=== PATIENT | male | born 1970 | race Caucasian/White ===

== ENCOUNTER 2019-05-23 03:04 | Emergency (ER) | payer BC ==
[~2019-05-23] VITALS: Ht 165.1 cm; Wt 108.0 kg
[2019-05-23 03:08] VITALS: Ht 165.1 cm; Wt 108.0 kg
[2019-05-23 04:15] VITALS: BP 135/79
== END 2019-05-23 03:18 | disposition home or self-care (01) ==
LOC: ED 03:04
DX: K40.90 Unilateral inguinal hernia, without obstruction or gangrene, not specified as recurrent (principal); Z98.890 Other specified postprocedural states